=== PATIENT | female | born 1985 | race Two or more races ===

== ENCOUNTER 2020-05-17 17:35 | Emergency (ER) | payer MEDICARE, MEDICAID, SELFPAY ==
--- NOTE | 2020-05-17 18:22 | US_ITS ---
EXAMINATION: US OB LIMITED US OB TRANSVAGINAL CLINICAL INFORMATION: Vaginal bleeding, 5 weeks gestational age. Date of LMP 04/13/2020. COMPARISON: None TECHNIQUE: Real-time scanning of the pelvis is acquired via transabdominal and transvaginal approach. FINDINGS: The uterus is anteverted, measuring 10.3 x 4.2 x 6.0 cm in length (from fundus to external cervical os, AP and transverse dimensions, respectively). Endometrial stripe thickness is 0.9 cm. There is no evidence of intrauterine gestational sac. Cervix is closed. The right ovary measures 3.4 x 2.2 x 2.3 cm and contains a mildly complex avascular cyst with peripheral rim of vascularity measuring 2.0 x 1.4 x 1.8, consistent with a corpus luteal cyst. Left ovary measures 4.2 x 2.4 x 2.1 cm and contains a 2.1 x 1.4 x 1.9 cm simple cyst. No adnexal mass or free fluid. IMPRESSION: No evidence of intrauterine at this time. No sonographic evidence to suggest ectopic . Recommend clinical correlation and correlation with serial beta-hCG. Follow up ultrasound may be acquired, as clinically deemed necessary.
--- NOTE | 2020-05-17 18:25 | ED_ITS ---
HPI - General Chief complaint: Vaginal Bleeding Stated complaint: vaginal bleeding Time Seen by Provider: 05/17/20 18:22 Source: patient Mode of arrival: ambulatory Limitations: no limitations History of Present Illness HPI Narrative: Patient is currently a at 5 weeks of gestational age. Patient comes in complaining of vaginal bleeding/ mild spotting. Patient started it started 1 hour ago. Patient denies abdominal pain, no UTIs symptoms. Patient states she had 3 positive tests MD Complaint: vaginal bleeding Onset (ago): hour(s) Related Data Allergies Allergy/AdvReac Type Severity Reaction Status Date / Time bee pollen [BEE STINGS] Allergy Unknown SWELLING Unverified 04/16/20 17:33 THROAT blueberry [Blueberry] Allergy Unknown HIVES Unverified 04/16/20 17:33 turkey Allergy Unknown HIVES Unverified 04/16/20 17:33 Bee stings Allergy Unknown hives, Uncoded 10/14/19 00:00 swelling, fever Blueberries Allergy Unknown hives Uncoded 10/14/19 00:00 Review of Systems Review of Systems: Yes all other systems are reviewed and are negative Genitourinary: Comments: mild vaginal spotting PMFSH Social History Social History Advance Directives: No Advance Directives Information Provided: No Physical Exam Vital Signs: Vital Signs: Vital Signs Temp Pulse Resp BP Pulse Ox 05/17/20 20:00 98.2 F 71 16 103/62 98 Const: General: cooperative and healthy appearing Orientation/consciousness: oriented to person HENMT: Head: Yes normal to inspection Ears: hearing grossly normal bilaterally General nose exam: Normal external nose present Eyes: General: appearance normal, both eyes and all related structures Neck: Neck: Yes normal visual inspection Chest: Chest palpation & inspection: normal inspection of the chest Resp: Effort & Inspection: normal respiratory effort Cardio: Rate: regular rate Rhythm: regular rhythm GI: Inspection: Yes normal to inspection : General: Yes no CVA tenderness Back/Spine/Pelvis: Back: no CVA tenderness Skin: General skin exam: no rashes or lesions noted Neuro: General: oriented to person Extrem: General: Yes normal to inspection Psych: Appearance: grossly normal Course Course Course Narrative: I discussed the labs and imaging with the patient, patient's quantitative hCG is negative, and the ultrasound is negative as well. At this time, cervical exam will be deferred. MDM - OB/Uterine Contractions MDM Narrative Medical decision making narrative: test negative, hCG level less than , patient likely resuming normal menstrual period Lab Data Result diagrams: 05/17/20 19:26 05/17/20 19:26 Labs: Lab Results 05/17/20 05/17/20 05/17/20 Range/Units 19:26 19:26 19:26 WBC 9.6 (4.8-10.8) X10*3/uL RBC 4.24 (4.20-5.50) X10*6/uL Hgb 12.7 (12.0-16.0) g/dl Hct 38.4 (37-47) % MCV 90.6 (80-98) fL MCH 30.0 (27.0-33.0) pg MCHC 33.1 (31.0-35.0) g/dl RDW 12.2 (11.0-16.0) % Plt Count 258 (160-400) X10*3/uL MPV 9.9 (9.4-12.3) fL Immature Gran % (Auto) 0.3 (0.0-0.4) % Neut % (Auto) 54.9 (45-73) % Lymph % (Auto) 34.2 (20-40) % [place] % (Auto) 7.9 (2-11) % Eos % (Auto) 2.1 (0-4) % Baso % (Auto) 0.6 (0-2) % Lymph # (Auto) 3.3 (1.2-4.9) X10*3/uL [place] # (Auto) 0.8 (0.1-1.2) X10*3/uL Eos # (Auto) 0.2 (0.0-0.4) X10*3/uL Baso # (Auto) 0.1 (0.0-0.2) X10*3/uL Abs Immat Gran (auto) 0.03 (0.00-0.03) X10*3/uL Absolute Neuts (auto) 5.2 (2.0-8.3) X10*3/uL Absolute Nucleated RBC 0.000 (0.0-0.012) X10*3/uL Nucleated RBC % (auto) 0.0 (0.0-0.2) /100WBC Sodium 140 (135-145) mmol/L Potassium 4.4 (3.3-5.1) mmol/l Chloride 108 (96-108) mmol/L Carbon Dioxide 23 (22-29) mmol/L Anion Gap 13 (12-20) BUN 14 (9-16) mg/dL Creatinine 0.81 (0.5-1.4) mg/dL Estim Creat Clear Calc TNP Estimated GFR > 60 Random Glucose 90 (60-115) mg/dL Calcium 9.3 (8.4-10.2) mg/dL Total Bilirubin 0.2 (0.0-1.0) mg/dL Direct Bilirubin < 0.2 (0.0-0.5) mg/dL AST 20 (5-31) U/L ALT 41 H (0-31) U/L Alkaline Phosphatase 49 (39-117) U/L Total Protein 7.1 (6.5-8.0) g/dL Albumin 4.3 (3.5-5.0) g/dL Beta HCG, Quant 8 mIU/mL Urine Color Urine Appearance Urine pH (5.0-8.0) Ur Specific Badger (1.005-1.025) Urine Protein (NEG-TRACE) MG/DL Urine Glucose (UA) (NEG) MG/DL Urine Ketones (NEG) MG/DL Urine Blood (NEG) Urine Nitrite (NEG) Ur Leukocyte Esterase (NEG) Urine RBC (0) /HPF Urine WBC (0-4) /HPF Ur Squamous Epith Cells /LPF Urine Bacteria /LPF Blood Type O Positive 05/17/20 Range/Units 19:27 WBC (4.8-10.8) X10*3/uL RBC (4.20-5.50) X10*6/uL Hgb (12.0-16.0) g/dl Hct (37-47) % MCV (80-98) fL MCH (27.0-33.0) pg MCHC (31.0-35.0) g/dl RDW (11.0-16.0) % Plt Count (160-400) X10*3/uL MPV (9.4-12.3) fL Immature Gran % (Auto) (0.0-0.4) % Neut % (Auto) (45-73) % Lymph % (Auto) (20-40) % [place] % (Auto) (2-11) % Eos % (Auto) (0-4) % Baso % (Auto) (0-2) % Lymph # (Auto) (1.2-4.9) X10*3/uL [place] # (Auto) (0.1-1.2) X10*3/uL Eos # (Auto) (0.0-0.4) X10*3/uL Baso # (Auto) (0.0-0.2) X10*3/uL Abs Immat Gran (auto) (0.00-0.03) X10*3/uL Absolute Neuts (auto) (2.0-8.3) X10*3/uL Absolute Nucleated RBC (0.0-0.012) X10*3/uL Nucleated RBC % (auto) (0.0-0.2) /100WBC Sodium (135-145) mmol/L Potassium (3.3-5.1) mmol/l Chloride (96-108) mmol/L Carbon Dioxide (22-29) mmol/L Anion Gap (12-20) BUN (9-16) mg/dL Creatinine (0.5-1.4) mg/dL Estim Creat Clear Calc Estimated GFR Random Glucose (60-115) mg/dL Calcium (8.4-10.2) mg/dL Total Bilirubin (0.0-1.0) mg/dL Direct Bilirubin (0.0-0.5) mg/dL AST (5-31) U/L ALT (0-31) U/L Alkaline Phosphatase (39-117) U/L Total Protein (6.5-8.0) g/dL Albumin (3.5-5.0) g/dL Beta HCG, Quant mIU/mL Urine Color YELLOW Urine Appearance CLEAR Urine pH 5.5 (5.0-8.0) Ur Specific Badger <= 1.005 (1.005-1.025) Urine Protein NEG (NEG-TRACE) MG/DL Urine Glucose (UA) NEG (NEG) MG/DL Urine Ketones NEG (NEG) MG/DL Urine Blood 3+ H (NEG) Urine Nitrite NEG (NEG) Ur Leukocyte Esterase NEG (NEG) Urine RBC 0 (0) /HPF Urine WBC 0 (0-4) /HPF Ur Squamous Epith Cells TRACE /LPF Urine Bacteria TRACE /LPF Blood Type Discharge Plan Discharge Clinical Impression: Vaginal bleeding, Normal physical examination Patient Disposition: Home, Self-Care Instructions: Normal Exam (ED) Additional Instructions: your test was negative on your ultrasound was negative for as well. Please follow-up with your primary care physician
[2020-05-17 19:32] LABS: MANUAL DIFF FLAG NO
[2020-05-17 19:34] LABS: Basophils Absolute Auto 0.1 X10*3/uL (0.0-0.2); Basophils Percent Auto 0.6 % (0-2); Eosinophils Absolute Auto 0.2 X10*3/uL (0.0-0.4); Eosinophils Percent Auto 2.1 % (0-4); Hematocrit 38.4 % (37-47); Hemoglobin 12.7 g/dl (12.0-16.0); Imm Gran Abs Auto 0.03 X10*3/uL (0.00-0.03); Imm Gran Pct Auto 0.3 % (0.0-0.4); Lymphocytes Absolute Auto 3.3 X10*3/uL (1.2-4.9); Lymphocytes Percent Auto 34.2 % (20-40); Mean Corpuscular HGB Conc 33.1 g/dl (31.0-35.0); Mean Corpuscular Volume 90.6 fL (80-98); Mean Platelet Volume 9.9 fL (9.4-12.3); Monocytes Absolute Auto 0.8 X10*3/uL (0.1-1.2); Monocytes Percent Auto 7.9 % (2-11); Neutrophils Absolute Auto 5.2 X10*3/uL (2.0-8.3); Neutrophils Percent Auto 54.9 % (45-73); Platelet Count 258 X10*3/uL (160-400); Red Blood Count 4.24 X10*6/uL (4.20-5.50); Red Cell Distribution Width 12.2 % (11.0-16.0); White Blood Count 9.6 X10*3/uL (4.8-10.8)
[2020-05-17 19:35] LABS: Glucose Urine UA NEG (NEG); Leukocyte Esterase Urine NEG (NEG); Nitrite Urine NEG (NEG); PH 5.5 (5.0-8.0); Specific Gravity - Urine <= 1.005 (1.005-1.025); Urine Blood 3+ (NEG); Urine Ketones NEG (NEG); Urine Protein NEG (NEG-TRACE)
[2020-05-17 19:36] LABS: Appearance Urine CLEAR; Color Urine YELLOW
[2020-05-17 19:44] LABS: Bacteria Urine TRACE /LPF; RBC Urine 0 /HPF (0); Squamous Epithelial Cell Urine TRACE /LPF; WBC Urine 0 /HPF (0-4)
[2020-05-17 20:00] VITALS: BP 103/62; PULSE 71; RESP 16; TEMP 36.8; O2SAT 98
[2020-05-17 20:09] LABS: Alanine Aminotransferase 41 U/L (0-31); Albumin Level 4.3 g/dL (3.5-5.0); Alkaline Phosphatase 49 U/L (39-117); Anion Gap 13 (12-20); Aspartate Amino Transferase 20 U/L (5-31); Bilirubin Direct < 0.2 mg/dL (0.0-0.5); Bilirubin Total 0.2 mg/dL (0.0-1.0); Blood Urea Nitrogen 14 mg/dL (9-16); Calcium 9.3 mg/dL (8.4-10.2); Carbon Dioxide 23 mmol/L (22-29); Chloride 108 mmol/L (96-108); Estimated Glomerular Filt Rate > 60; Glucose Random 90 mg/dL (60-115); Potassium 4.4 mmol/l (3.3-5.1); Sodium 140 mmol/L (135-145); Total Protein 7.1 g/dL (6.5-8.0)
[2020-05-17 20:16] LABS: HCG Quantitative 8 mIU/mL
== END 2020-05-17 21:41 | disposition home or self-care (01) ==
PROVIDERS: Emergency Provider Emergency Medicine; PCP Internal Medicine
DX: N93.9 Abnormal uterine and vaginal bleeding, unspecified (principal)
CPT/HCPCS: 36415; 76815; 76817; 80048; 80076; 81001; 84702; 85025; 86900; 86901; 99283; 99284

== ENCOUNTER 2020-06-09 09:50 | Outpatient (REF) | payer OTHER, SELFPAY | END 2020-06-09 09:51 | disposition home or self-care (01) | LOC: HO.LAB 09:50 | PROVIDERS: Visit Provider Internal Medicine | DX: Z20.828 Contact with and (suspected) exposure to other viral communicable diseases (principal) | CPT/HCPCS: C9803; U0003 ==

== ENCOUNTER 2020-06-26 12:29 | Outpatient (REF) | payer OTHER, SELFPAY | END 2020-06-26 12:30 | disposition home or self-care (01) | LOC: HO.LAB 12:29 | PROVIDERS: Visit Provider Internal Medicine | DX: Z20.828 Contact with and (suspected) exposure to other viral communicable diseases (principal) | CPT/HCPCS: C9803; U0003 ==

== ENCOUNTER 2020-09-16 15:47 | Outpatient (REF) | payer OTHER, SELFPAY | END 2020-09-16 15:48 | disposition home or self-care (01) | LOC: HO.LAB 15:47 | PROVIDERS: Visit Provider Nurse Practitioner Family | DX: J01.90 Acute sinusitis, unspecified (principal); Z20.822 Contact with and (suspected) exposure to COVID-19 | CPT/HCPCS: 36415; U0003; U0005 ==

== ENCOUNTER 2021-08-03 09:25 | Emergency (ER) | payer OTHER, SELFPAY ==
--- NOTE | ~2021-08-03 | XR_ITS ---
EXAMINATION: XR CHEST CLINICAL INFORMATION: SOB and cough. COMPARISON: None TECHNIQUE: Frontal view of the chest was obtained. FINDINGS: No significant abnormality is noted involving the heart, lungs, mediastinum, bony thorax or soft tissues. XR/XR chest 1V IMPRESSION: Unremarkable chest examination.
[2021-08-03 09:38] VITALS: BP 116/68; BP 125/76; PULSE 74; PULSE 75; RESP 16; TEMP 36.8; O2SAT 99; BMI 29.5
--- NOTE | 2021-08-03 09:43 | ED_ITS ---
HPI - Weakness General Chief complaint: Weakness Stated complaint: GENERAL WEAKNESS,+HOME COVID TEST,+ VACCINES Time Seen by Provider: 08/03/21 09:37 Source: patient Mode of arrival: EMS Limitations: no limitations History of Present Illness HPI Narrative: This is a 36-year-old female who is brought in by ambulance past medical history significant for asthma and seasonal allergies presenting to the emergency department with weakness,productive cough, palpitations and with hope to get a covid test X1 day. Patient tells me that she has been palpitations however she does tell me she feels very anxious, she tells me this feels like her typical anxiety attack. She tells me with making her anxious is COVID-19, she is afraid that her 5 children at home will get this. She tells me that she was recently treated with Zyrtec for sinus congestion. She tells me it has slightly improved however she still feeling weak. Patient tells me that she wanted to get COVID testedbecause she had a positive COVID test on Monday at home, and yesterday she took another when she came back negative. She denies chest pain, shortness of breath, fevers, chills, nausea, vomiting, abdominal pain. MD Complaint: generalized weakness Onset (ago): day(s) (1) Duration: constant Location: generalized Migration: none Severity: moderate Relieving factors: none Exacerbating factors: none Associated symptoms: denies other symptoms Related Data Previous Rx's Medication Instructions Recorded albuterol sulfate 90 mcg/actuation 2 puff INHALATION Q4-6H PRN 30 07/27/21 aerosol inhaler (ProAir HFA) Days #8.5 g cetirizine 10 mg tablet 10 mg PO DAILY 90 Days #90 tab 07/27/21 Allergies Allergy/AdvReac Type Severity Reaction Status Date / Time bee pollen [BEE STINGS] Allergy Unknown SWELLING Verified 07/27/21 13:31 THROAT blueberry [Blueberry] Allergy Unknown HIVES Verified 07/27/21 13:31 turkey Allergy Unknown HIVES Unverified 07/27/21 13:31 Review of Systems Review of Systems: Constitutional : No Weight loss, No Fever, No Chills, + Fatigue, + Malaise ENT/Mouth : No sore throat, No Rhinorrhea Eyes: No Eye Pain, No Swelling, No Redness Cardiovascular : No Chest Pain, No SOB, No Dyspnea on Exertion, No Orthopnea, No Edema, No Palpitations Respiratory : + Cough, No Sputum, No Wheezing Gastrointestinal : No Nausea, No Vomiting, No Diarrhea, No Constipation, No abdominal Pain, No Hematochezia, No Melena Genitourinary : No Dysuria, No Urinary Frequency, No Hematuria, Musculoskeletal : No joint pain, + Myalgias, No Joint Swelling Skin : No Skin Lesions, No rash Neuro : No Weakness, No Numbness, No Dizziness, No Headache Psych : + Anxiety/Panic, No Depression All other systems reviewed and are negative Yes all other systems are reviewed and are negative [facility] Past Medical History Attestation statement: The following information was validated with the patient. Source: old records reviewed and nursing notes reviewed Surgical History (Updated 09/17/20 @ 14:54 by ANDRZEJ Marie, CHANDU) History of hernia repair Family History Family History (Updated 09/17/20 @ 15:03 by ANDRZEJ Marie, CHANDU) Father HTN (hypertension) Mother HTN (hypertension) Diabetes mellitus Maternal Grandmother Heart problem Lung cancer Stroke History of heart attack Maternal Grandfather Stroke Heart problem Paternal Grandmother Diabetes mellitus HTN (hypertension) Stroke History of heart attack Asthma Maternal Aunt Diabetes mellitus Maternal Uncle Stroke Brother No problems noted. Sister No problems noted. Son No problems noted. Son No problems noted. Daughter No problems noted. Daughter No problems noted. Social History Social History Advance Directives: No Patient : No Physical Exam Vital Signs: Vital Signs: Last Vital Signs Temp 98.2 F 08/03/21 09:38 Pulse 74 08/03/21 09:38 Resp 16 08/03/21 09:38 BP 116/68 08/03/21 09:38 Pulse Ox 99 08/03/21 09:38 BMI result Body Mass Index 29.5 VSS Appearance: Alert.? Oriented X3.? No acute distress.?+ patient anxious. Head: Normocephalic, atraumatic, no step-offs or deformities Eyes: Pupils equal, round and reactive to light.? ENT: Pharynx normal.? Neck: Normal inspection.? Neck supple.? CVS: Normal heart rate and rhythm.? Pulses normal.? Respiratory: No respiratory distress.? Breath sounds normal.? Abdomen: Soft and nontender.? Skin: Skin warm and dry.? Normal skin color.? Normal skin turgor.? Extremities: No lower extremity edema.? No calf ttp. 5/5 strength to bilateral upper and lower extremities Back: No midline tenderness, no C-spine tenderness, full range of motion, no CVA tenderness bilaterally Neuro: Oriented X 3.? No motor deficit.? No sensory deficit. Course Reevaluation(s) Reevaluation #1: CBC within normal limits. No acute electrolyte abnormalities, her transaminases are noted to be slightly elevated. Troponin is negative. EKG with no ischemia. Patient tells me that her palpitations and chest pain have resolved. Patient is COVID positive. Chest x-ray is unremarkable. Very low suspicion for ACS. No signs of pneumonia. Unlikely that this is a PE. Patient's symptoms likely secondary to COVID-19, and anxiety. At this time patient's vital signs are stable, she is saturating 99% even after ambulation. I feel comfortable with discharge home. I have educated her on COVID-19, proper quarantine and safety recommendations. I have also outlined strict return precautions for this patient and if put them in her discharge. Comfortable with discharge Time: 11:07 MDM - Weakness MDM Narrative Medical decision making narrative: 9[birth year] 36 yo F pmhx asthma, seasonal allergies presents to ED w/ generalized weakness, productive cough, palpitations and a COVID + at home test 5 days ago. Patient tells me she feels anxious. PE benign. Plan at this time is to obtain basic labs, COVID test, EKG, CXR, trop. Will rule out pna, ACS and COVID. Medical Records Attestation: I reviewed the patient's medical records. Lab Data Attestation: I reviewed the patient's lab results. Result diagrams: 08/03/21 10:10 08/03/21 10:10 Labs: Lab Results 08/03/21 08/03/21 08/03/21 Range/Units 09:43 10:10 10:10 WBC 5.9 (4.8-10.8) X10*3/uL RBC 4.29 (4.20-5.50) X10*6/uL Hgb 12.3 (12.0-16.0) g/dl Hct 37.6 (37.0-47.0) % MCV 87.6 (80.0-98.0) fL MCH 28.7 (27.0-33.0) pg MCHC 32.7 (31.0-35.0) g/dl RDW 12.8 (11.0-16.0) % Plt Count 258 (160-400) X10*3/uL MPV 9.8 (9.4-12.3) fL Immature Gran % (Auto) 0.2 (0.0-0.4) % Neut % (Auto) 49.5 (45-73) % Lymph % (Auto) 42.1 H (20-40) % [place] % (Auto) 6.4 (2-11) % Eos % (Auto) 1.5 (0-4) % Baso % (Auto) 0.3 (0-2) % Lymph # (Auto) 2.5 (1.2-4.9) X10*3/uL [place] # (Auto) 0.4 (0.1-1.2) X10*3/uL Eos # (Auto) 0.1 (0.0-0.4) X10*3/uL Baso # (Auto) 0.0 (0.0-0.2) X10*3/uL Abs Immat Gran (auto) 0.01 (0.00-0.03) X10*3/uL Absolute Neuts (auto) 2.9 (2.0-8.3) x10*3/uL Absolute Nucleated RBC 0.000 (0.0-0.012) X10*3/uL Nucleated RBC % (auto) 0.0 (0.0-0.2) /100WBC Sodium 142 (135-145) mmol/L Potassium 3.9 (3.3-5.1) mmol/L Chloride 112 H (96-108) mmol/L Carbon Dioxide 23 (22-29) mmol/L Anion Gap 11 L (12-20) BUN 8 L (9-16) mg/dL Creatinine 0.73 (0.5-1.4) mg/dL Estim Creat Clear Calc 117.9 Estimated GFR > 60 Random Glucose 92 (60-115) mg/dL Calcium 9.3 (8.4-10.2) mg/dL Total Bilirubin 0.2 (0.0-1.0) mg/dL AST 36 H D (5-31) U/L ALT 74 H (0-31) U/L Alkaline Phosphatase 59 D (39-117) U/L Troponin I High Sens (<3.5-17.0) ng/L Total Protein 7.0 (6.5-8.0) g/dL Albumin 4.0 (3.5-5.0) g/dL COVID-19 (CANDICE) Positive A (Negative) COVID-19 Clin Com See Note 08/03/21 Range/Units 10:10 WBC (4.8-10.8) X10*3/uL RBC (4.20-5.50) X10*6/uL Hgb (12.0-16.0) g/dl Hct (37.0-47.0) % MCV (80.0-98.0) fL MCH (27.0-33.0) pg MCHC (31.0-35.0) g/dl RDW (11.0-16.0) % Plt Count (160-400) X10*3/uL MPV (9.4-12.3) fL Immature Gran % (Auto) (0.0-0.4) % Neut % (Auto) (45-73) % Lymph % (Auto) (20-40) % [place] % (Auto) (2-11) % Eos % (Auto) (0-4) % Baso % (Auto) (0-2) % Lymph # (Auto) (1.2-4.9) X10*3/uL [place] # (Auto) (0.1-1.2) X10*3/uL Eos # (Auto) (0.0-0.4) X10*3/uL Baso # (Auto) (0.0-0.2) X10*3/uL Abs Immat Gran (auto) (0.00-0.03) X10*3/uL Absolute Neuts (auto) (2.0-8.3) x10*3/uL Absolute Nucleated RBC (0.0-0.012) X10*3/uL Nucleated RBC % (auto) (0.0-0.2) /100WBC Sodium (135-145) mmol/L Potassium (3.3-5.1) mmol/L Chloride (96-108) mmol/L Carbon Dioxide (22-29) mmol/L Anion Gap (12-20) BUN (9-16) mg/dL Creatinine (0.5-1.4) mg/dL Estim Creat Clear Calc Estimated GFR Random Glucose (60-115) mg/dL Calcium (8.4-10.2) mg/dL Total Bilirubin (0.0-1.0) mg/dL AST (5-31) U/L ALT (0-31) U/L Alkaline Phosphatase (39-117) U/L Troponin I High Sens < 3.5 (<3.5-17.0) ng/L Total Protein (6.5-8.0) g/dL Albumin (3.5-5.0) g/dL COVID-19 (CANDICE) (Negative) COVID-19 Clin Com Imaging Data Chest x-ray: Attestation: I personally reviewed and interpreted this imaging study as follows: Radiologist's impression: FINDINGS: No significant abnormality is noted involving the heart, lungs, mediastinum, bony thorax or soft tissues. XR/XR chest 1V IMPRESSION: Unremarkable chest examination. ECG Data Attestation: I personally reviewed and interpreted this ECG as follows: ECG interpretation date: 08/03/21 ECG interpretation time: 10:48 Prior ECG tracings: available for review Interpretation: ventricular rate 57, MT normal, QRS normal, QT / QTC normal. EKG shows sinus bradycardia. no ST elevations or inversions concerning for ischemia. No previous EKGs to compare with. Critical Care Time Critical Care Time Critical Care Time: No Discharge Plan Discharge Clinical Impression: COVID-19, Anxiety Patient Disposition: Home, Self-Care Instructions: Anxiety (ED), COVID-19 (Coronavirus Disease 2019) (ED) Additional Instructions: Take your medications as prescribed. If you were prescribed antibiotics today, it is important that you take your medication to their entirety, do not skip any doses, do not finish them early. Today you tested positive for COVID-19. Take Ibuprofen or Tylenol as needed for fevers or body aches. Quarantine for 7 days and ensure you wear a mask. After 7 days you should wear a mask for 3 days after that. Practice social distancing and good hand hygiene. Drink plenty of fluids. Follow-up with your primary care provider this week. Return to the emergency department with new or worsening symptoms. In case of emergency call 911 You can purchase a pulse oximeter from your local pharmacy or grocery store, and monitor your oxygen saturation if it goes below 94% you should return to the emergency department for further evaluation. If You Test Positive for COVID-19 (Isolate) Everyone, regardless of vaccination status. * Stay home for 5 days. * If you have no symptoms or your symptoms are resolving after 5 days, you can leave your house. * Continue to wear a mask around others for 5 additional days. If you have a fever, continue to stay home until your fever resolves. If You Were Exposed to Someone with COVID-19 (Quarantine) If you: Have been boosted OR Completed the primary series of Pfizer or Moderna vaccine within the last 6 months OR Completed the primary series of J&J vaccine within the last 2 months * Wear a mask around others for 10 days. * Test on day 5, if possible. If you develop symptoms get a test and stay home. If you: Completed the primary series of Pfizer or Moderna vaccine over 6?months ago and are not boosted OR Completed the primary series of J&J over 2 months ago and are not boosted OR Are unvaccinated * Stay home for 5 days. After that continue to wear a mask around others for 5 additional days. * If you can?t quarantine you must wear a mask for 10 days. * Test on day 5 if possible. If you develop symptoms get a test and stay home Prescriptions: No Action albuterol sulfate [ProAir HFA] 90 mcg/actuation HFA aerosol inhaler 2 puff inhalation Q4-6H PRN (Reason: shortness of breath or wheezing) 30 Days Qty: 8.5 RF: 6 cetirizine 10 mg tablet 10 mg PO DAILY 90 Days Qty: 90 RF: 1 Referrals: Leyla Carey [employer] [Primary Care Provider] - 2 days Stand Alone Forms: Work/School Release
--- NOTE | 2021-08-03 09:51 | ECG_ITS ---
Test Reason : weakness Blood Pressure : / mmHG Vent. Rate : 057 BPM Atrial Rate : 057 BPM P-R Int : 120 ms QRS Dur : 086 ms QT Int : 424 ms P-R-T Axes : 048 028 048 degrees QTc Int : 412 ms Sinus bradycardia Cannot rule out Anterior infarct , age undetermined Abnormal ECG When compared with ECG of 28-FEB-2019 01:31, No significant change was found Referred By: Christina Rogers Electronically Signed By:DENIA VEIIRA MD
[2021-08-03 10:04] LABS: COVID-19 Test Positive (Negative); IDNOW Serial# 9DD0AD1C
[2021-08-03 10:23] LABS: MANUAL DIFF FLAG NO
[2021-08-03 10:25] LABS: Basophils Percent Auto 0.3 % (0-2); Eosinophils Absolute Auto 0.1 X10*3/uL (0.0-0.4); Eosinophils Percent Auto 1.5 % (0-4); Hematocrit 37.6 % (37.0-47.0); Hemoglobin 12.3 g/dl (12.0-16.0); Imm Gran Abs Auto 0.01 X10*3/uL (0.00-0.03); Imm Gran Pct Auto 0.2 % (0.0-0.4); Lymphocytes Absolute Auto 2.5 X10*3/uL (1.2-4.9); Lymphocytes Percent Auto 42.1 % (20-40); Mean Corpuscular HGB Conc 32.7 g/dl (31.0-35.0); Mean Corpuscular Hemoglobin 28.7 pg (27.0-33.0); Mean Corpuscular Volume 87.6 fL (80.0-98.0); Mean Platelet Volume 9.8 fL (9.4-12.3); Monocytes Absolute Auto 0.4 X10*3/uL (0.1-1.2); Monocytes Percent Auto 6.4 % (2-11); Neutrophils Absolute Auto 2.9 x10*3/uL (2.0-8.3); Neutrophils Percent Auto 49.5 % (45-73); Platelet Count 258 X10*3/uL (160-400); Red Blood Count 4.29 X10*6/uL (4.20-5.50); Red Cell Distribution Width 12.8 % (11.0-16.0); White Blood Count 5.9 X10*3/uL (4.8-10.8)
[2021-08-03 10:45] LABS: Alanine Aminotransferase 74 U/L (0-31); Alkaline Phosphatase 59 U/L (39-117); Anion Gap 11 (12-20); Aspartate Amino Transferase 36 U/L (5-31); Bilirubin Total 0.2 mg/dL (0.0-1.0); Blood Urea Nitrogen 8 mg/dL (9-16); Calcium 9.3 mg/dL (8.4-10.2); Carbon Dioxide 23 mmol/L (22-29); Chloride 112 mmol/L (96-108); Creatinine Clr Calc Pharmacy 117.9; Estimated Glomerular Filt Rate > 60; Glucose Random 92 mg/dL (60-115); Potassium 3.9 mmol/L (3.3-5.1); Sodium 142 mmol/L (135-145); Troponin-I High Sensitivity < 3.5 ng/L (<3.5-17.0)
== END 2021-08-03 11:58 | disposition home or self-care (01) ==
PROVIDERS: Physician Assistant; Emergency Provider Emergency Medicine; PCP Hospitalist
DX: U07.1 COVID-19 (principal); F41.9 Anxiety disorder, unspecified; R53.1 Weakness
CPT/HCPCS: 36415; 71045; 80053; 84484; 85025; 87635; 93005; 99283

== ENCOUNTER → 2021-11-16 11:38 | Outpatient (BNVA) | payer OTHER, SELFPAY | PROVIDERS: Visit Provider Obstetrics & Gynecology | DX: Z30.09 Encounter for other general counseling and advice on contraception (principal) | CPT/HCPCS: Q3014 ==

== ENCOUNTER 2022-08-31 10:08 | Outpatient (REF) | payer OTHER, SELFPAY ==
[2022-08-31 11:05] LABS: Hematocrit 38.3 % (37.0-47.0); Hemoglobin 12.5 g/dl (12.0-16.0); Mean Corpuscular HGB Conc 32.6 g/dl (31.0-35.0); Mean Corpuscular Hemoglobin 29.3 pg (27.0-33.0); Mean Corpuscular Volume 89.9 fL (80.0-98.0); Mean Platelet Volume 10.1 fL (9.4-12.3); Platelet Count 302 X10*3/uL (160-400); Red Blood Count 4.26 X10*6/uL (4.20-5.50); Red Cell Distribution Width 12.7 % (11.0-16.0); White Blood Count 7.3 X10*3/uL (4.8-10.8)
[2022-08-31 11:36] LABS: Alanine Aminotransferase 59 U/L (0-31); Albumin Level 4.2 g/dL (3.5-5.0); Alkaline Phosphatase 53 U/L (39-117); Anion Gap 12 (12-20); Aspartate Amino Transferase 26 U/L (5-31); Bilirubin Total 0.7 mg/dL (0.0-1.0); Blood Urea Nitrogen 12 mg/dL (9-16); Calcium 9.5 mg/dL (8.4-10.2); Carbon Dioxide 23 mmol/L (22-29); Chloride 108 mmol/L (96-108); Cholesterol 211 mg/dL; Estimated Glomerular Filt Rate > 60; Glucose Fasting 82 mg/dL (60-99); HDL Cholesterol 33 mg/dL; LDL Cholesterol Calculated 150 mg/dl; Potassium 4.2 mmol/L (3.3-5.1); Sodium 139 mmol/L (135-145); Total Protein 7.2 g/dL (6.5-8.0); Triglycerides 140 mg/dL
[2022-08-31 11:55] LABS: TSH reflex Free T4 1.25 uIU/mL (0.32-4.0); Vitamin D 25-OH Total 13.7 ng/mL (>30)
== END 2022-08-31 10:09 | disposition home or self-care (01) ==
LOC: HO.WFDLDS 10:08
PROVIDERS: Visit Provider Nurse Practitioner Family
DX: Z00.00 Encounter for general adult medical examination without abnormal findings (principal)
CPT/HCPCS: 36415; 80053; 80061; 82306; 84443; 85027

== ENCOUNTER 2022-11-22 13:25 | Outpatient (REF) | payer OTHER, SELFPAY ==
--- NOTE | ~2022-11-22 | XR_ITS ---
EXAMINATION: XR ABDOMEN KUB CLINICAL INDICATION: Constipation COMPARISON: None available. TECHNIQUE: AP view of the abdomen. FINDINGS: There does not appear to be a large stool burden. There is some stool seen in the right colon. There are no dilated loops of bowel to suggest obstruction. No calcifications. Normal bony structures. XR/XR KUB IMPRESSION: No large stool burden. There is some stool seen in the right colon.
== END 2022-11-22 13:26 | disposition home or self-care (01) ==
LOC: HO.HMGCX 13:25
PROVIDERS: PCP Hospitalist; Visit Provider Hospitalist
DX: K59.09 Other constipation (principal)
CPT/HCPCS: 74018

== ENCOUNTER → 2022-12-14 09:00 | Outpatient (BNVA) | payer OTHER, SELFPAY | PROVIDERS: PCP Hospitalist; Visit Provider Dietitian, Registered | DX: E78.00 Pure hypercholesterolemia, unspecified (principal) | CPT/HCPCS: 97802 ==

== ENCOUNTER → 2023-01-11 08:24 | Outpatient (BNVA) | payer OTHER, SELFPAY | PROVIDERS: PCP Hospitalist; Visit Provider Physician Assistant ==

== ENCOUNTER 2023-01-16 19:30 | Emergency (ER) | payer OTHER, SELFPAY ==
[2023-01-16 19:40] VITALS: BP 113/76; PULSE 72; RESP 20; TEMP 36.7; O2SAT 96; BMI 35.5
--- NOTE | 2023-01-16 19:40 | ED.GENADULT ---
HPI - General Adult General Chief complaint: General Medical Stated complaint: throat pain / numbness on side Time Seen by Provider: 01/16/23 20:37 Source: patient, RN notes reviewed and old records reviewed Mode of arrival: ambulatory Limitations: no limitations History of Present Illness HPI narrative: 37-year-old female presents for evaluation of sore throat She reports that she was diagnosed with strep pharyngitis 3 weeks ago and was treated amoxicillin for 7 days Her symptoms have worsened over the last week and she continues to have pain and sore throat Reports subjective fevers yesterday Denies any difficulty breathing or swallowing Related Data Previous Rx's Medication Instructions Recorded clindamycin HCl 300 mg capsule 300 mg PO TID #30 caps 01/16/23 meloxicam 15 mg tablet 15 mg PO DAILY #14 tabs 01/16/23 Allergies Allergy/AdvReac Type Severity Reaction Status Date / Time bee pollen [BEE STINGS] Allergy Unknown SWELLING Verified 01/16/23 16:28 THROAT blueberry [Blueberry] Allergy Unknown HIVES Verified 01/16/23 16:28 turkey Allergy Unknown HIVES Verified 01/16/23 16:28 Review of Systems Constitutional: Constitutional: Reports as per HPI, Denies chills, Denies fatigue, Denies fever(s) and Denies headache(s) ENT: Denies headache(s), Reports neck pain, Reports sore throat and Denies throat swelling Cardiovascular: Cardiovascular: Denies chest pain and Denies dyspnea Respiratory: Respiratory: Denies cough and Denies dyspnea Gastrointestinal: Gastrointestinal: Denies abdominal pain, Denies constipation and Denies vomiting Genitourinary: Genitourinary: Denies dysuria Musculoskeletal: Musculoskeletal: Reports neck pain Neurologic: Denies headache(s) and Denies focal weakness Endocrine: Endocrine: Denies fatigue Allergic/Immunologic: Allergic/Immunologic: Denies throat swelling PMFSH Past Medical History Surgical History History of hernia repair Family History Family History Father HTN (hypertension) Mother HTN (hypertension) Diabetes mellitus Maternal Grandmother Heart problem Lung cancer Stroke History of heart attack Maternal Grandfather Stroke Heart problem Paternal Grandmother Diabetes mellitus HTN (hypertension) Stroke History of heart attack Asthma Maternal Aunt Diabetes mellitus Maternal Uncle Stroke Brother No problems noted. Sister No problems noted. Son No problems noted. Son No problems noted. Daughter No problems noted. Daughter No problems noted. Other Mental health disorder Substance use disorder Social History Social History Housing: Apartment Patient Tobacco Use Status: Never used Tobacco e-Cigarette/Vaping Use: Never Used Advance Directives: No Advance Directives Information Provided: Yes service: No Current occupational status: unemployed Current occupational exposures/hazards: No Cognitive needs: No Hearing needs: No Vision needs: No Physical Exam ED Vital Signs: Vital Signs - 24 hr 01/16/23 19:40 Temperature 98.0 F Pulse Rate 72 Respiratory Rate 20 Blood Pressure 113/76 Pulse Oximetry 96 Oxygen Delivery Method Room Air BMI result Body Mass Index 35.5 Const General: healthy appearing, comfortable, no acute distress, alert and awake Nutritional Appearance: well nourished Orientation/consciousness: patient oriented x3 HENMT Other: Mildly erythematous oropharynx/retropharynx. No significant tonsillar abscess. No obvious exudates. Eyes Eyelids: Yes eyelids normal Conjunctivae: conjunctivae normal Sclerae: sclerae normal Corneas: corneas normal Pupils: Equal, round and reactive pupils present EOM: EOMs intact bilaterally Neck Neck: Yes full ROM Skin General skin exam: no rashes or lesions noted and elasticity normal Neuro General: patient oriented x3 Cranial nerves: Yes Equal, round and reactive pupils present and Yes Bilaterally intact EOM present Cognition (Neuro): normal cognition Extrem Other: Moving all extremities well without any obvious deformities Course Course Course Narrative: 37 year old female presents for evaluation of a sore throat. Reports her symptoms started three weeks ago and she tested positive for strep and was treated. She reports that she finished the antibiotics, she states that she changed her toothbrush after being treated. Patient reports persistent sore throat. Plan for mono screen and repeat rapid strep test. Patient has retropharyngeal erythema on exam without obvious exudate Medical Decision Making Medical Decision Making MDM Narrative: Patient was tested for strep and mononucleosis. Her strep test was positive, she was treated previously with amoxicillin so we will switch to clindamycin. Differential Diagnosis Strep pharyngitis Viral syndrome Mononucleosis Exudative pharyngitis Lab Data 01/16/23 20:03 01/16/23 20:03 Labs: Lab Results 01/16/23 01/16/23 01/16/23 Range/Units 20:03 20:03 20:03 WBC 10.9 H (4.8-10.8) X10*3/uL RBC 4.30 (4.20-5.50) X10*6/uL Hgb 12.5 (12.0-16.0) g/dl Hct 37.9 (37.0-47.0) % MCV 88.1 (80.0-98.0) fL MCH 29.1 (27.0-33.0) pg MCHC 33.0 (31.0-35.0) g/dl RDW 12.8 (11.0-16.0) % Plt Count 307 (160-400) X10*3/uL MPV 9.4 (9.4-12.3) fL Immature Gran % (Auto) 0.5 H (0.0-0.4) % Neut % (Auto) 57.5 (45-73) % Lymph % (Auto) 32.2 (20-40) % [place] % (Auto) 7.7 (2-11) % Eos % (Auto) 1.6 (0-4) % Baso % (Auto) 0.5 (0-2) % Lymph # (Auto) 3.5 (1.2-4.9) X10*3/uL [place] # (Auto) 0.8 (0.1-1.2) X10*3/uL Eos # (Auto) 0.2 (0.0-0.4) X10*3/uL Baso # (Auto) 0.1 (0.0-0.2) X10*3/uL Abs Immat Gran (auto) 0.05 H (0.00-0.03) X10*3/uL Absolute Neuts (auto) 6.3 (2.0-8.3) x10*3/uL Absolute Nucleated RBC 0.000 (0.0-0.012) X10*3/uL Nucleated RBC % (auto) 0.0 (0.0-0.2) /100WBC Sodium 142 (135-145) mmol/L Potassium 3.7 (3.3-5.1) mmol/L Chloride 109 H (96-108) mmol/L Carbon Dioxide 25 (22-29) mmol/L Anion Gap 12 (12-20) BUN 9 (9-16) mg/dL Creatinine 0.89 (0.5-1.4) mg/dL Estim Creat Clear Calc 105.1 Estimated GFR > 60 Random Glucose 120 H (60-115) mg/dL Calcium 9.7 (8.4-10.2) mg/dL Monoscreen Negative (Negative) S. pyogenes GrpA LEONID (Negative) 01/16/23 Range/Units 20:04 WBC (4.8-10.8) X10*3/uL RBC (4.20-5.50) X10*6/uL Hgb (12.0-16.0) g/dl Hct (37.0-47.0) % MCV (80.0-98.0) fL MCH (27.0-33.0) pg MCHC (31.0-35.0) g/dl RDW (11.0-16.0) % Plt Count (160-400) X10*3/uL MPV (9.4-12.3) fL Immature Gran % (Auto) (0.0-0.4) % Neut % (Auto) (45-73) % Lymph % (Auto) (20-40) % [place] % (Auto) (2-11) % Eos % (Auto) (0-4) % Baso % (Auto) (0-2) % Lymph # (Auto) (1.2-4.9) X10*3/uL [place] # (Auto) (0.1-1.2) X10*3/uL Eos # (Auto) (0.0-0.4) X10*3/uL Baso # (Auto) (0.0-0.2) X10*3/uL Abs Immat Gran (auto) (0.00-0.03) X10*3/uL Absolute Neuts (auto) (2.0-8.3) x10*3/uL Absolute Nucleated RBC (0.0-0.012) X10*3/uL Nucleated RBC % (auto) (0.0-0.2) /100WBC Sodium (135-145) mmol/L Potassium (3.3-5.1) mmol/L Chloride (96-108) mmol/L Carbon Dioxide (22-29) mmol/L Anion Gap (12-20) BUN (9-16) mg/dL Creatinine (0.5-1.4) mg/dL Estim Creat Clear Calc Estimated GFR Random Glucose (60-115) mg/dL Calcium (8.4-10.2) mg/dL Monoscreen (Negative) S. pyogenes GrpA LEONID Positive A (Negative) Discharge Plan Discharge Clinical Impression: Acute streptococcal pharyngitis Patient Disposition: Home, Self-Care Instructions: Strep Throat (ED) Additional Instructions: Take clindamycin 3 times daily for 10 days Use ibuprofen, Tylenol for pain You may use salt water gargles or Chloraseptic spray You tested positive for strep throat again Change your toothbrush and wash her sheets after your last dose of antibiotic Prescriptions: New clindamycin HCl 300 mg capsule 300 mg PO TID Qty: 30 0RF No Action meloxicam 15 mg tablet 15 mg PO DAILY Qty: 14 0RF Stand Alone Forms: Work/School Release
[2023-01-16 20:10] LABS: MANUAL DIFF FLAG NO
[2023-01-16 20:14] LABS: Basophils Absolute Auto 0.1 X10*3/uL (0.0-0.2); Basophils Percent Auto 0.5 % (0-2); Eosinophils Absolute Auto 0.2 X10*3/uL (0.0-0.4); Eosinophils Percent Auto 1.6 % (0-4); Hematocrit 37.9 % (37.0-47.0); Hemoglobin 12.5 g/dl (12.0-16.0); Imm Gran Abs Auto 0.05 X10*3/uL (0.00-0.03); Imm Gran Pct Auto 0.5 % (0.0-0.4); Lymphocytes Absolute Auto 3.5 X10*3/uL (1.2-4.9); Lymphocytes Percent Auto 32.2 % (20-40); Mean Corpuscular Hemoglobin 29.1 pg (27.0-33.0); Mean Corpuscular Volume 88.1 fL (80.0-98.0); Mean Platelet Volume 9.4 fL (9.4-12.3); Monocytes Absolute Auto 0.8 X10*3/uL (0.1-1.2); Monocytes Percent Auto 7.7 % (2-11); Neutrophils Absolute Auto 6.3 x10*3/uL (2.0-8.3); Neutrophils Percent Auto 57.5 % (45-73); Platelet Count 307 X10*3/uL (160-400); Red Cell Distribution Width 12.8 % (11.0-16.0); White Blood Count 10.9 X10*3/uL (4.8-10.8)
[2023-01-16 20:15] LABS: IDNOW Serial# 08D9AD1C; Strep A Nucleic Acid Positive (Negative)
[2023-01-16 20:28] LABS: Anion Gap 12 (12-20); Blood Urea Nitrogen 9 mg/dL (9-16); Calcium 9.7 mg/dL (8.4-10.2); Carbon Dioxide 25 mmol/L (22-29); Chloride 109 mmol/L (96-108); Creatinine Clr Calc Pharmacy 105.1; Estimated Glomerular Filt Rate > 60; Glucose Random 120 mg/dL (60-115); Monotest Negative (Negative); Potassium 3.7 mmol/L (3.3-5.1); Sodium 142 mmol/L (135-145)
--- NOTE | 2023-01-16 20:47 | PC.NURSE ---
Reviewed discharge instructions with pt. pt verbalized understanding.
== END 2023-01-16 20:48 | disposition home or self-care (01) ==
PROVIDERS: Physician Assistant; Emergency Provider Emergency Medicine; PCP Internal Medicine Rheumatology
DX: J02.0 Streptococcal pharyngitis (principal); R07.0 Pain in throat; Z20.822 Contact with and (suspected) exposure to COVID-19; Z20.828 Contact with and (suspected) exposure to other viral communicable diseases; Z79.899 Other long term (current) drug therapy
CPT/HCPCS: 36415; 80048; 85025; 86308; 87651; 99282; 99283

== ENCOUNTER 2023-02-24 18:56 | Emergency (ER) | payer OTHER, SELFPAY ==
--- NOTE | ~2023-02-24 | US_ITS ---
EXAMINATION: US ABDOMEN LIMITED CLINICAL INFORMATION: Right upper quadrant pain. COMPARISON: None available. TECHNIQUE: Real-time imaging of the right upper quadrant abdominal viscera. FINDINGS: PANCREAS: The visualized portion of the pancreas head and body are normal, portion of the pancreatic body and tail, not visualized are obscured by bowel gas. LIVER: Normal. The liver is normal in size. The liver contour is normal. Parenchymal echogenicity is normal. No focal hepatic lesion. There is no intrahepatic biliary duct dilatation seen. GALLBLADDER: There are multiple gallstones. The gallbladder is physiologically distended without evidence of sludge, polyps, wall thickening or pericholecystic fluid. COMMON BILE DUCT: Normal in caliber measuring 0.4 cm in diameter. RIGHT KIDNEY: Normal. No hydronephrosis. No renal calculi or focal parenchymal lesions. The kidney measures 11.9 cm in maximum dimension. FREE FLUID: None. US/US abdomen limited IMPRESSION: Cholelithiasis without ultrasound evidence of acute cholecystitis.
[2023-02-24 19:11] VITALS: BP 126/73; PULSE 68; RESP 18; TEMP 36.6; O2SAT 98; BMI 32.1
--- NOTE | 2023-02-24 19:12 | ED_ITS ---
HPI - General Adult General Chief complaint: Abdominal Pain Stated complaint: Sharp pain Upper r side of ribs, nausea Time Seen by Provider: 02/24/23 21:47 Related Data Previous Rx's Medication Instructions Recorded clindamycin HCl 300 mg capsule 300 mg PO TID #30 caps 01/16/23 meloxicam 15 mg tablet 15 mg PO DAILY #14 tabs 01/16/23 Allergies Allergy/AdvReac Type Severity Reaction Status Date / Time bee pollen [BEE STINGS] Allergy Unknown SWELLING Verified 02/24/23 19:14 THROAT blueberry [Blueberry] Allergy Unknown HIVES Verified 02/24/23 19:14 turkey Allergy Unknown HIVES Verified 02/24/23 19:14 [facility] Past Medical History Surgical History History of hernia repair Family History Family History Father HTN (hypertension) Mother HTN (hypertension) Diabetes mellitus Maternal Grandmother Heart problem Lung cancer Stroke History of heart attack Maternal Grandfather Stroke Heart problem Paternal Grandmother Diabetes mellitus HTN (hypertension) Stroke History of heart attack Asthma Maternal Aunt Diabetes mellitus Maternal Uncle Stroke Brother No problems noted. Sister No problems noted. Son No problems noted. Son No problems noted. Daughter No problems noted. Daughter No problems noted. Other Mental health disorder Substance use disorder Social History Social History Housing: Apartment Patient Tobacco Use Status: Never used Tobacco e-Cigarette/Vaping Use: Never Used Advance Directives: No Advance Directives Information Provided: Yes service: No Current occupational status: unemployed Current occupational exposures/hazards: No Cognitive needs: No Hearing needs: No Vision needs: No Physical Exam ED Vital Signs: Vital Signs - 24 hr 02/24/23 19:11 Temperature 97.9 F Pulse Rate 68 Respiratory Rate 18 Blood Pressure 126/73 Pulse Oximetry 98 BMI result Body Mass Index 32.1 Course Course Course Narrative: This is a rapid medical exam: Additional HPI, ROS, PE not included below will be deferred to primary provider. Patient is a 37-year-old female presenting to the ED with RUQ abdominal pain since 1 am, nausea and vomiting. Denies diarrhea or constipation. Denies fevers. Plan: labs, UA, RUQ U/S Medical Decision Making Lab Data 02/24/23 19:32 02/24/23 19:32 Labs: Lab Results 02/24/23 02/24/23 02/24/23 Range/Units 19:32 19:32 19:32 WBC 8.3 (4.8-10.8) X10*3/uL RBC 4.47 (4.20-5.50) X10*6/uL Hgb 13.0 (12.0-16.0) g/dl Hct 39.3 (37.0-47.0) % MCV 87.9 (80.0-98.0) fL MCH 29.1 (27.0-33.0) pg MCHC 33.1 (31.0-35.0) g/dl RDW 12.3 (11.0-16.0) % Plt Count 261 (160-400) X10*3/uL MPV 9.9 (9.4-12.3) fL Immature Gran % (Auto) 0.4 (0.0-0.4) % Neut % (Auto) 43.9 L (45-73) % Lymph % (Auto) 45.1 H (20-40) % [place] % (Auto) 8.0 (2-11) % Eos % (Auto) 2.1 (0-4) % Baso % (Auto) 0.5 (0-2) % Lymph # (Auto) 3.7 (1.2-4.9) X10*3/uL [place] # (Auto) 0.7 (0.1-1.2) X10*3/uL Eos # (Auto) 0.2 (0.0-0.4) X10*3/uL Baso # (Auto) 0.0 (0.0-0.2) X10*3/uL Abs Immat Gran (auto) 0.03 (0.00-0.03) X10*3/uL Absolute Neuts (auto) 3.6 (2.0-8.3) x10*3/uL Absolute Nucleated RBC 0.000 (0.0-0.012) X10*3/uL Nucleated RBC % (auto) 0.0 (0.0-0.2) /100WBC Sodium 138 (135-145) mmol/L Potassium 4.1 (3.3-5.1) mmol/L Chloride 107 (96-108) mmol/L Carbon Dioxide 18 L (22-29) mmol/L Anion Gap 17 (12-20) BUN 13 (9-16) mg/dL Creatinine 0.85 (0.5-1.4) mg/dL Estim Creat Clear Calc 104.6 Estimated GFR > 60 Random Glucose 94 (60-115) mg/dL Calcium 9.8 (8.4-10.2) mg/dL Total Bilirubin 0.2 (0.0-1.0) mg/dL AST 23 (5-31) U/L ALT 37 H (0-31) U/L Alkaline Phosphatase 57 (39-117) U/L Total Protein 8.0 (6.5-8.0) g/dL Albumin 4.4 (3.5-5.0) g/dL Lipase 49 (8-78) U/L Beta HCG, Quant < 2 mIU/mL Discharge Plan Discharge Clinical Impression: Abdominal pain Patient Disposition: Elopement Prescriptions: No Action clindamycin HCl 300 mg capsule 300 mg PO TID Qty: 30 0RF meloxicam 15 mg tablet 15 mg PO DAILY Qty: 14 0RF Interventions: ED Discharge Assessment Last Done: 02/24/23 22:07 Discharge Date/Time: 02/24/23 22:07
[2023-02-24 19:37] LABS: MANUAL DIFF FLAG NO
[2023-02-24 19:39] LABS: Basophils Percent Auto 0.5 % (0-2); Eosinophils Absolute Auto 0.2 X10*3/uL (0.0-0.4); Eosinophils Percent Auto 2.1 % (0-4); Hematocrit 39.3 % (37.0-47.0); Imm Gran Abs Auto 0.03 X10*3/uL (0.00-0.03); Imm Gran Pct Auto 0.4 % (0.0-0.4); Lymphocytes Absolute Auto 3.7 X10*3/uL (1.2-4.9); Lymphocytes Percent Auto 45.1 % (20-40); Mean Corpuscular HGB Conc 33.1 g/dl (31.0-35.0); Mean Corpuscular Hemoglobin 29.1 pg (27.0-33.0); Mean Corpuscular Volume 87.9 fL (80.0-98.0); Mean Platelet Volume 9.9 fL (9.4-12.3); Monocytes Absolute Auto 0.7 X10*3/uL (0.1-1.2); Neutrophils Absolute Auto 3.6 x10*3/uL (2.0-8.3); Neutrophils Percent Auto 43.9 % (45-73); Platelet Count 261 X10*3/uL (160-400); Red Blood Count 4.47 X10*6/uL (4.20-5.50); Red Cell Distribution Width 12.3 % (11.0-16.0); White Blood Count 8.3 X10*3/uL (4.8-10.8)
[2023-02-24 20:03] LABS: Alanine Aminotransferase 37 U/L (0-31); Albumin Level 4.4 g/dL (3.5-5.0); Alkaline Phosphatase 57 U/L (39-117); Anion Gap 17 (12-20); Aspartate Amino Transferase 23 U/L (5-31); Bilirubin Total 0.2 mg/dL (0.0-1.0); Blood Urea Nitrogen 13 mg/dL (9-16); Calcium 9.8 mg/dL (8.4-10.2); Carbon Dioxide 18 mmol/L (22-29); Chloride 107 mmol/L (96-108); Creatinine Clr Calc Pharmacy 104.6; Estimated Glomerular Filt Rate > 60; Glucose Random 94 mg/dL (60-115); Lipase 49 U/L (8-78); Potassium 4.1 mmol/L (3.3-5.1); Sodium 138 mmol/L (135-145)
[2023-02-24 20:39] LABS: HCG Quantitative < 2 mIU/mL
== END 2023-02-24 22:07 | disposition left against medical advice (07) ==
PROVIDERS: Registered Nurse Emergency; Emergency Provider Emergency Medicine; PCP Hospitalist
DX: R10.30 Lower abdominal pain, unspecified (principal); R07.81 Pleurodynia; R11.2 Nausea with vomiting, unspecified; R10.11 Right upper quadrant pain; Z79.899 Other long term (current) drug therapy
CPT/HCPCS: 36415; 76705; 80053; 83690; 84702; 85025; 99282; 99284

== ENCOUNTER 2024-08-28 10:14 | Outpatient (AMB) | payer OTHER, SELFPAY ==
[2024-08-28 11:07] VITALS: BP 92/62; PULSE 84; RESP 14; TEMP 36.7; O2SAT 99; BMI 24.7
--- NOTE | 2024-08-28 11:07 | MHC.PC.OV ---
Vital Signs 08/28/24 11:07 Height 5 ft 6 in Weight 153 lb BMI 24.7 BP 92/62 Blood Pressure Location Lt brachial Position Sitting Respiration 14 Pulse 84 Pulse Source Pulse Oximeter Temp 98.1 F Temp Source Oral Pulse Oximetry (%) 99 Oxygen Delivery Method Room Air Intake Visit Reasons: Transfer of Care from [facility] Intake Note: Pt is here today as a transfer from [facility] and is requesting referral for neurology for frequent h/a Allergies bee pollen [BEE STINGS] Allergy (Unknown, Verified 08/28/24 11:15) SWELLING THROAT blueberry [Blueberry] Allergy (Unknown, Verified 08/28/24 11:15) HIVES turkey Allergy (Unknown, Verified 08/28/24 11:15) HIVES Medication List - Last Reconciled 08/28/24 by Gisselle Chapman MD amoxicillin-pot clavulanate 875-125 mg 1 tab PO Q12H fexofenadine-pseudoephedrine 60-120 mg ER 1 tab PO QAM PRN fluticasone propionate 50 mcg/actuation 1 spray intranasal DAILY multivitamin 1 tab PO DAILY semaglutide (weight loss) (Wegovy) mg subcut Tobacco use date assessed: 08/28/24 Dental Screening Dental Screen Date: 08/28/24 Did you have a dental visit in the last 12 months?: Yes Did you have a dental problem in the last 6 months where you did not have access to dental care?: No Was dental information given to patient?: Patient has dentist HPI Transfer of Care from [facility] HPI Details 39-year-old lady here today complaining of frontal headaches mainly on her left cheek, accompanied by nasal congestion postnasal drainage, which has been present now for the last several days. He has been taking [id number] cough and cold medications which has not afforded much improvement in her symptoms. Denies any accompanying fever, no cough, no shortness of breath or wheezing reported. [facility] Medical History History of COVID-19 Dyslipidemia History of being obese Surgical History History of hernia repair Family History Father HTN (hypertension) Mother HTN (hypertension) Diabetes mellitus Maternal Grandmother Heart problem Lung cancer Stroke History of heart attack Maternal Grandfather Stroke Heart problem Paternal Grandmother Diabetes mellitus HTN (hypertension) Stroke History of heart attack Asthma Maternal Aunt Diabetes mellitus Maternal Uncle Stroke Brother No problems noted. Sister No problems noted. Son No problems noted. Son No problems noted. Daughter No problems noted. Daughter No problems noted. Other Mental health disorder Substance use disorder Social History Housing: Apartment Patient Tobacco Use Status: Never used Tobacco e-Cigarette/Vaping Use: Never Used service: No Current occupational status: unemployed Current occupational exposures/hazards: No Cognitive needs: No Hearing needs: No Vision needs: Yes Female Reproductive History Menstrual Age of Menarche: 17 Questionnaire PHQ-9 Over the last 2 weeks, how often have you been bothered by any of the following problems? 1. Little interest or pleasure in doing things: several days 2. Feeling down, depressed, or hopeless: not at all 3. Trouble falling or staying asleep, or sleeping too much: several days 4. Feeling tired or having little energy: several days 5. Poor appetite or overeating: not at all 6. Feeling bad about yourself - or that you are a failure or have let yourself or your family down: not at all 7. Trouble concentrating on things, such as reading the newspaper or watching television: several days 8. Moving or speaking so slowly that other people could have noticed. Or the opposite - being so fidgety or restless that you have been moving around a lot more than usual: not at all 9. Thoughts that you would be better off or of hurting yourself in some way: not at all Total score: 4 Depression Screening Interpretation: Negative Depression Screening Done: Yes 26910 - PHQ-9 Billing: Yes Source: Developed by Drs. Isac Marx, Rizwana Schulte, Jony Paul and colleagues, with an educational yves from [employer]. Thrive Questionnaire Date Thrive assessed: 08/28/24 I am a: Patient What is your living situation today?: I have a steady place to live Within the past 12 months, did the food you bought not last and you didn't have the money to get more?: Never true Within the past 12 months, did you worry whether your food would run out before you got money to buy more?: Never true Do you have trouble paying for medicines?: No Do you have trouble getting transportation to medical appointments?: No Do you have trouble paying your heating and electricity bill?: No Do you have trouble taking care of your child, family member or friend?: No Do you have trouble with day-to-day activities such as bathing, preparing meals, shopping, managing finances, etc.?: I choose not to answer this question Are you currently unemployed and looking for a job?: No Are you interested in more education?: No Please select the resources that you would like help with: None Currently or been in a relationship where the following occur: No concerns reported THRIVE Score: 0 AUDIT C Alcohol Use Questionnaire (AUDIT-C) 1. How often do you have a drink containing alcohol?: Never Total Score: 0 MAURO-7 AMB Questionnaire MAURO-7 Date MAURO - 7 assessed: 08/28/24 Feeling nervous, anxious, or on edge: 0 = Not at all Not being able to stop or control worryin = Not at all Worrying too much about different things: 0 = Not at all Trouble relaxin = Not at all Being so restless that it is hard to sit still: 0 = Not at all Becoming easily annoyed or irritable: 1 = Several days Feeling afraid as if something awful might happen: 0 = Not at all Total MAURO-7 score (0-4 normal; 5-9 mild; 10-14 moderate; 15-21 severe): 1 Source: Developed by Drs. Isac Marx, Rizwana Schulte, Jony Paul and colleagues, with an educational yves from [employer]. MAURO-7 Assessment Billing MAURO-7 Assessment Tool: MAURO-7 Assessment 29763 Review of Systems Const All systems reviewed & are unremarkable except as noted in HPI and below Physical exam (Primary Care) Vital Signs: Last Vital Signs Temp 98.1 F 08/28/24 11:07 Pulse 84 08/28/24 11:07 Resp 14 08/28/24 11:07 BP 92/62 08/28/24 11:07 Pulse Ox 99 08/28/24 11:07 Oxygen Delivery Method Room Air 08/28/24 11:07 BMI result Body Mass Index 24.7 Tobacco/Smoking Status: Tobacco use Status Tobacco use date assessed 08/28/24 08/28/24 11:11 Patient Tobacco Use Status Never used Tobacco 08/28/24 11:11 e-Cigarette/Vaping Use Never Used 08/28/24 11:11 PHQ-9: PHQ-9 Score PHQ-9: Total score 4 08/28/24 11:37 Depression Screening Interpretation: Negative Thrive Assessment: Date of Thrive Assessment Date Thrive assessed 08/28/24 08/28/24 11:11 Currently or been in a relationship where the following occur: No concerns reported Const Other: Alert oriented x3 , no acute distress noted Orientation/consciousness: patient oriented x3 HENMT Other: Tenderness on palpation over left maxillary sinus area, with swollen left inferior nasal turbinate Ears: external ears normal, TM's normal bilaterally and EAC's normal Eyes General: appearance normal, both eyes and all related structures Neck Neck: Yes full ROM, Yes no lymphadenopathy and Yes supple Resp Auscultation: clear to auscultation bilaterally Cardio Other: S1-S2 present regular rate and rhythm GI Palpation (GI): Soft to palpation, nontender and no guarding Neuro General: patient oriented x3, gait normal, moves all extremities and no focal motor deficits Coding Level of Care Code New Pt Level 3 (54465) Diagnoses Acute non-recurrent maxillary sinusitis J01.00 Recurrence: non-recurrent Additional Codes MAURO-7 Assessment Billing - MAURO-7 Assessment Tool: MAURO-7 Assessment 53463 ([id number]) PHQ-9 - 55856 - PHQ-9 Billing: Yes ([id number]) Assessment & Plan Assessment & Plan (1) Acute maxillary sinusitis: Code(s): J01.00 - Acute maxillary sinusitis, unspecified Category: Medical Qualifiers: Recurrence: non-recurrent Qualified Code(s): J01.00 - Acute maxillary sinusitis, unspecified Plan: Prescription sent for amoxicillin-clavulanic acid 875-125 mg tablet to take 1 every 12 hours for 10 days. Advised to take it with food at all times, may cause some nausea and alteration in bowel habits. Prescription also sent for fexofenadine-pseudoephedrine 60-120 mg per tablet to take 1 tablet once a day as needed for sinus congestion , take it only as needed. And prescription also sent for fluticasone propionate 50 mcg per inhalation 2 instill 1 spray per nostril once or twice a day as needed for nasal congestion. Medications: New fexofenadine-pseudoephedrine 60-120 mg ER 1 tab PO QAM PRN 10 tabs 0RF allergy symptoms, nasal congestion amoxicillin-pot clavulanate 875-125 mg Take it with meals 1 tab PO Q12H 20 tabs 0RF fluticasone propionate 50 mcg/actuation administer into each nostril 1 spray intranasal DAILY 16 grams 0RF
--- OUTSIDE RECORDS SUMMARY | 2024-08-28 12:12 | XMS_ITS | Clinical Summary ---
Author Organization [address] [place] [address] [place] [phone] Phone Care Team Providers Care Hazardous Waste Technician Name Role Phone Christopher Sanchez MD Primary Care Provider [phone] Allergies Active Allergy Reactions Criticality Noted Date Comments Blueberry Flavor Medium 05/29/2007 Other Reaction(s): Hives/Urticaria Medications Medication Sig Dispensed Refills Start Date End Date Status cyanocobalamin, vitamin B-12, 1,000 mcg tablet, sublingual Place 1 Tablet under the tongue daily. 04/22/2024 Active zinc glycinate 30 mg capsule Take 1 Capsule by mouth daily. 04/22/2024 Active nystatin (MYCOSTATIN) 100,000 unit/gram powder Apply topically if needed for rash (rash). 15 g 2024 2025 Active semaglutide (Wegovy) 2.4 mg/0.75 mL injection pen Inject 2.4 mg under the skin every 7 (seven) days. 3 mL 08/15/2024 Active semaglutide (Wegovy) 2.4 mg/0.75 mL injection pen Inject 2.4 mg under the skin every 7 (seven) days. 3 mL 2024 08/14/2024 Discontinued (Reorder) Active Problems Problem Noted Date Diagnosed Date Rectal bleeding 08/27/2010 Anemia 03/11/2008 Joint pain 03/11/2008 Overview (05/08/2024): Wrist pain and knee pain and ankle pain Vertigo 03/11/2008 Encounters Date Type Department Care Team Description 08/28/2024 Telephone Bariatric Surgery [facility] [address] [facility] [address] [place] [address] Anais Gaviria PA Med Refill 2024 10:15 AM EST Office Visit Bariatric Surgery - [address] [place] [address] Anais Gaviria PA Hx of obesity (Primary Dx); Symptomatic abdominal panniculus from Last 3 Months Immunizations Name Administration Dates Next Due DTP 04/22/1993,199 0,10/06/1988,1987,1987 [id number] (Pentacel) 2mo to less than 5yo 01/12/1989 Hepatitis B Pediatric (Enger ix B; Recombivax HB) to less than 20 yo 07/26/1996,03/13/1996,12/29/1995 Influenza trivalent, with preservative (Fluzone; Afluria) 6mo and older 07/27/2007 MMR, measles mumps and rubel la Live (Priorix; M-M-R II) 12mo and older 06/28/1995,09/15/1988 OPV 04/22/1993, 9,06/28/1988,1987 Td Tetanus diptheria (Tdvax) 7yo and older 09/13/2000 Family History Medical History Relation Name Comments Diabetes Aunt 1 Hypertension Aunt 2 Lung cancer Maternal Grandmother Diabetes Paternal Grandmother Relation Name Status Comments Aunt 1 Aunt 2 Aunt 3 Maternal Grandmother Paternal Grandmother Social History Tobacco Use Types Packs/Day Years Used Date Smoking Tobacco: Never Alcohol Use Standard Drinks/Week Comments No 0 (1 standard drink = 0.6 oz pur e alcohol) Sex and Gender Information Value Date Recorded Sex Assigned at Not on file Gender Identity Not on file Sexual Orientation Not on file Job Start Date Occupation Industry Not on file Not on file Not on file Obstetrics History Last Filed Vital Signs Vital Sign Reading Time Taken Comments Blood Pressure 95/62 2024 10:19 AM EST Pulse 82 2024 10:19 AM EST Temperature 36.3 ??C (97.4 ??F) 2024 10:[address] Respiratory Rate - - Oxygen Saturation - - Inhaled Oxygen Concentration - - Weight 72.1 kg (159 lb) 2024 10:19 AM EST Height 167.6 cm (5' 6 ) 2024 10:19 AM EST Body Mass Index 25.66 2024 10:19 AM EST Plan of Treatment Upcoming Encounters Date Type Department Care Team (Late st Contact Info) Description 09/26/2024 9:15 AM EST Office Visit Bariatric Surgery - [place] [address] [facility] [address] [place] [phone] Anais Gaviria PA [address] [facility] [address] [place] [address] Health Maintenance Due Date Last Done Comments Cervical Cancer Screening: Pap Smear 08/27/2013 08/27/2010 Cholesterol Screening (Lipid Panel) 07/03/2022 09/08/2008 Depression Screening 07/03/2022 Hepatitis C Screening 07/03/2022 Medicare Annual Wellness Visit 07/03/2022 Social Influencers of Health Screening 07/03/2022 COVID-19 Vaccine ( season) 2024 07/27/2022, 02/22/2022, 12/31/2020, Additional history exists Influenza Vaccine (#1) 2024 , 05/31/2021, 04/26/2018, Additional history exists DTaP,Tdap,and Td Vaccines (10 - Td or Tdap) 04/02/2031 04/02/2021, 02/04/2015, 07/31/2013, Additional history exists HIB Vaccines Completed 01/12/1989, 01/12/1989 IPV Vaccines Completed 04/22/1993, 12/29, 01/12/1989, Additional history exists MMR Vaccines Completed 06/28/1995, 09/15/1988 Hepatitis B Vaccines Completed 07/26/1996, 03/13/1996, 12/29/1995 HIV Screening Completed 03/10/2009 HPV Vaccines Aged Out No longer eligi ble based on patient's age to complete this topic Hepatitis A Vaccines Aged Out No long er eligible based on patient's age to complete this topic Meningococcal ACWY Vaccine Aged Out N o longer eligible based on patient's age to complete this topic Pneumococcal Vaccine: Pediatrics (0 to 5 Years) and At-Risk Patients (6 to 64 Years) Aged Out No longer eligible based on patient's age to complete this topic RSV Immunization Patients Under 20 months Aged Out No longer eligible based on patient's age to complete this topic Varicella Vaccines Aged Out No longer eligible based on patient's age to complete this topic Procedures Procedure Name Priority Date/Time Associated Diagnosis Comments PAP SMEAR Routine 08/27/2010 HIV SCREENING Routine 03/10/2009 LIPID PANEL Routine 09/08/2008 from Last 3 Months or Most Recently Relevant to Health Maintenance Results * Pap Smear (08/27/2010) Pap smear Negative, Abstracted Historical Provider MD C[facility]AND CAMPOS E * HIV Screening (03/10/2009) Pathologist [facility] HIV Screening Abstracted Historical Provider MD C[facility]AND CAMPOS E * (ABNORMAL) Lipid panel (09/08/2008) LDL/HDL Ratio 5(A) 0 - 4 Triglycerides 222(A) 0 - 150 mg/dL Cholesterol 159 0 - 200 mg/dL HDL 29(A) 40 mg/dL LDL Cholesterol 86 0 - 100 mg/dL Blood Venous blood specimen / Unknown Historical Provider LAB BLOOD ORDERAB LES from Last 3 Months or Most Recently Relevant to Health Maintenance Care Teams Hazardous Waste Technician Relationship Specialty Start Date End Date Christopher Sanchez MD [address] [place] [address] Dr [address] JAKI Pitt PCP - General Internal Medicine 05/08/24
== END 2024-08-28 11:35 | disposition home or self-care (01) ==
PROVIDERS: PCP Hospitalist; Visit Provider Internal Medicine
DX: J01.00 Acute maxillary sinusitis, unspecified (principal)

== ENCOUNTER → 2024-08-28 10:14 | Outpatient (BNVA) | payer OTHER, SELFPAY | PROVIDERS: PCP Hospitalist; Visit Provider Internal Medicine | DX: R51.9 Headache, unspecified (principal); J01.00 Acute maxillary sinusitis, unspecified | CPT/HCPCS: 96127; 99202 ==

== ENCOUNTER 2025-02-27 08:49 | Outpatient (AMB) | payer OTHER, SELFPAY ==
--- NOTE | 2025-02-27 08:53 | A.OFFPC_ITS ---
Vital Signs 02/27/25 08:54 Height 5 ft 6 in Weight 155 lb BMI 25.0 BP 98/62 Blood Pressure Location Rt brachial Position Sitting Pulse 96 Pulse Source Pulse Oximeter Pulse Oximetry (%) 97 Oxygen Delivery Method Room Air Intake Visit Reasons: PE Intake Note: pt is here for PE, and pt has had a GISELL at [facility] in the past no pap needed Allergies bee pollen (BEE STINGS) Allergy (Unknown, Verified 02/27/25 12:36) SWELLING THROAT blueberry (Blueberry) Allergy (Unknown, Verified 02/27/25 12:36) HIVES turkey Allergy (Unknown, Verified 02/27/25 12:36) HIVES Medication List - Last Reconciled 02/27/25 by Gisselle Chapman MD fexofenadine-pseudoephedrine 60-120 mg ER 1 tab PO QAM PRN fluticasone propionate 50 mcg/actuation 1 spray intranasal DAILY PRN multivitamin 1 tab PO DAILY Tobacco use date assessed: 02/27/25 Dental Screening Dental Screen Date: 08/28/24 HPI PE HPI Details - The patient is a 39-year-old female pr esenting for her physical exam . -history of Gallstones s/p lap cholecy stectomy performed in 2022. - The patient underwent a hysterectomy i n 2023 due to abnormal uterine bleeding and abnormal cells in uterine lining . States that she will contact her diamond sizer at [facility] for a pelvic exam and follow-up- The patient reports an enlarged thyroid discovered via ultrasound before the pandemic, with no current follow-up care. no diagnosis of any thyroid disorder in the past - Constipation is a chronic issue, with the patient experiencing infrequent bowel movements and requiring laxatives for relief. - The patient has a history of hyperchol esterolemia and vitamin D deficiency, with previous blood work indicating elevated cholesterol levels and low vitamin D. - Vaccinations up to date, including COV ID-19 boosters and tetanus. [facility] Medical History Constipation Fatigue History of COVID-19 Dyslipidemia History of being obese Surgical History History of appendectomy History of cholecystectomy S/P hysterectomy History of hernia repair Family History Father HTN (hypertension) Mother HTN (hypertension) Diabetes mellitus Maternal Grandmother Heart problem Lung cancer Stroke History of heart attack Maternal Grandfather Stroke Heart problem Paternal Grandmother Diabetes mellitus HTN (hypertension) Stroke History of heart attack Asthma Maternal Aunt Diabetes mellitus Maternal Uncle Stroke Brother No problems noted. Sister No problems noted. Son No problems noted. Son No problems noted. Daughter No problems noted. Daughter No problems noted. Other Mental health disorder Substance use disorder Social History Housing: Apartment Patient Tobacco Use Status: Never used Tobacco e-Cigarette/Vaping Use: Never Used service: No Current occupational status: unemployed Current occupational exposures/hazards: No Cognitive needs: No Hearing needs: No Vision needs: Yes Female Reproductive History Menstrual Age of Menarche: 17 Other: sees [facility] women's health Questionnaire PHQ-9 Over the last 2 weeks, how often have you been bothered by any of the following problems? 1. Little interest or pleasure in doing things: not at all 2. Feeling down, depressed, or hopeless: not at all 3. Trouble falling or staying asleep, or sleeping too much: several days 4. Feeling tired or having little energy: several days 5. Poor appetite or overeating: not at all 6. Feeling bad about yourself - or that you are a failure or have let yourself or your family down: not at all 7. Trouble concentrating on things, such as reading the newspaper or watching television: not at all 8. Moving or speaking so slowly that other people could have noticed. Or the opposite - being so fidgety or restless that you have been moving around a lot more than usual: not at all 9. Thoughts that you would be better off or of hurting yourself in some way: not at all Total score: 2 Depression Screening Interpretation: Negative Depression Screening Done: Yes 83473 - PHQ-9 Billing: Yes Source: Developed by Drs. Isac Marx, Rizwana Schulte, Jony Paul and colleagues, with an educational yves from [employer]. Thrive Questionnaire Date Thrive assessed: 02/27/25 I am a: Patient What is your living situation today?: I have a steady place to live Within the past 12 months, did the food you bought not last and you didn't have the money to get more?: Never true Within the past 12 months, did you worry whether your food would run out before you got money to buy more?: Never true Do you have trouble paying for medicines?: No Do you have trouble getting transportation to medical appointments?: No Do you have trouble paying your heating and electricity bill?: No Do you have trouble taking care of your child, family member or friend?: No Do you have trouble with day-to-day activities such as bathing, preparing meals, shopping, managing finances, etc.?: I choose not to answer this question Are you currently unemployed and looking for a job?: No Are you interested in more education?: No Please select the resources that you would like help with: None Currently or been in a relationship where the following occur: No concerns reported THRIVE Score: 0 AUDIT C Alcohol Use Questionnaire (AUDIT-C) 1. How often do you have a drink containing alcohol?: Never 3. How often do you have six or more drinks on one occasion?: Never Total Score: 0 Score Reviewed/Action Taken: Yes MAURO-7 AMB Questionnaire MAURO-7 Date MAURO - 7 assessed: 02/27/25 Feeling nervous, anxious, or on edge: 0 = Not at all Not being able to stop or control worryin = Not at all Worrying too much about different things: 0 = Not at all Trouble relaxin = Not at all Being so restless that it is hard to sit still: 0 = Not at all Becoming easily annoyed or irritable: 1 = Several days Feeling afraid as if something awful might happen: 0 = Not at all Total MAURO-7 score (0-4 normal; 5-9 mild; 10-14 moderate; 15-21 severe): 1 Source: Developed by Drs. Isac Marx, Rizwana Schulte, Jony Paul and colleagues, with an educational yves from [employer]. MAURO-7 Assessment Billing MAURO-7 Assessment Tool: MAURO-7 Assessment 52435 Review of Systems Const Denies body aches, Denies headache(s) and Denies weakness Eyes Details: Goes to [facility] for her routine eye exam Reports blurry vision ENT Details: Dental cleaning every six-months Denies dizziness and Denies headache(s) Card Denies chest pain, Denies lightheadedness, Denies palpitations and Denies dyspnea Resp Denies chest congestion, Denies cough and Denies dyspnea GI Reports as per HPI, Denies abdominal pain and Denies heartburn Details: Goes to [facility] O[facility]YN for routine Pap and pelvic exam, had hysterectomy done due to abnormal uterine bleeding and abnormal cells in uterine lining per patient Denies hematuria, Denies urinary frequency, Denies dysuria and Denies urinary urgency Musc Reports no additional complaints Skin/Breast Denies breast pain, Denies breast mass, Denies lesions and Denies rash Neuro Denies dizziness, Denies headache(s) and Denies weakness Psych Reports no additional complaints Endo Denies polydipsia, Denies polyuria and Denies palpitations Chadd/Lymph Denies easy bruising Aller/Immun Denies seasonal rhinorrhea Physical exam (Primary Care) Vital Signs: Last Vital Signs Pulse 96 02/27/25 08:54 BP 98/62 02/27/25 08:54 Pulse Ox 97 02/27/25 08:54 Oxygen Delivery Method Room Air 02/27/25 08:54 BMI result Body Mass Index 25.0 Tobacco/Smoking Status: Tobacco use Status Tobacco use date assessed 02/27/25 02/27/25 08:55 Patient Tobacco Use Status Never used Tobacco 02/27/25 08:55 e-Cigarette/Vaping Use Never Used 02/27/25 08:55 Depression Screening Interpretation: Negative Thrive Assessment: Date of Thrive Assessment Date Thrive assessed 02/27/25 02/27/25 08:55 Currently or been in a relationship where the following occur: No concerns reported Const Other: Alert oriented x3 , no acute distress noted HENNH Ears: external ears normal, TM's normal bilaterally and EAC's normal Eyes General: appearance normal, both eyes and all related structures Neck Neck: Yes full ROM, Yes no lymphadenopathy and Yes supple Chest Chest palpation & inspection: normal inspection of the chest Breast/axilla inspection: normal inspection of the breasts Breast/axilla palpation: normal palpation of the breasts Resp Auscultation: clear to auscultation bilaterally Cardio Other: S1-S2 present regular rate and rhythm GI Inspection: Yes scar (Healed laparoscopic scars) Palpation (GI): Soft to palpation, nontender and no guarding Auscultation: normal bowel sounds Other: Goes to [facility] OBG[facility] General: Yes no CVA tenderness Back/Spine/Pelvis Back: no CVA tenderness and No back tenderness Skin General skin exam: no rashes or lesions noted Neuro General: gait normal, moves all extremities and no focal motor deficits Extrem General: Yes normal to inspection, Yes full ROM, Yes no joint enlargement, Yes no clubbing, cyanosis or edema, Yes no calf tenderness and Yes normal gait Psych Appearance: grossly normal and well kempt Mental Status: mental status grossly normal Speech and movement: Normal speech and movement present Affect: normal affect Coding Level of Care Code Est Pt Prev Care 18-39y(32743) Diagnoses Annual visit for general adult medical examination with abnormal findings Z. Dyslipidemia E78.5 Fatigue, unspecified type R53.83 Fatigue type: unspecified Additional Codes MAURO-7 Assessment Billing - MAURO-7 Assessment Tool: MAURO-7 Assessment 33112 ([id number]) PHQ-9 - 57724 - PHQ-9 Billing: Yes ([id number]) Assessment & Plan Assessment & Plan (1) Annual visit for general adult medical examination with abnormal findings: Code(s): Z00. - Encounter for general adult medical examination with abnormal findings (2) Dyslipidemia: Code(s): E78.5 - Hyperlipidemia, unspecified Category: Medical (3) Fatigue: Code(s): R53.83 - Other fatigue Category: Medical Qualifiers: Fatigue type: unspecified Qualified Code(s): R53.83 - Other fatigue Plan The patient will undergo routine blood work to monitor cholesterol and vitamin D levels, given the history of hypercholesterolemia and vitamin D deficiency. Thyroid function tests are recommended due to the history of an enlarged thyroid, with a follow-up ultrasound if abnormalities are detected. A routine Pap smear and pelvic exam are advised due to the history of abnormal cervical cells, despite the hysterectomy. The patient is encouraged to maintain regular dental and eye care appointments and to stay updated on vaccinations, including flu shots and COVID-19 boosters. Patient was informed and verbally consented to the use of an ambient scribe for clinic note documentation during this visit. Orders: Orders TSH reflex Free T4 Today E78.5 - Hyperlipidemia, unspecified, K59.00 - Constipation, unspecified, R53.83 - Other fatigue, Z00.01 - Encounter for general adult medical examination with abnormal findings, Z13.1 - Encounter for screening for diabetes mellitus Liver Panel Today E78.5 - Hyperlipidemia, unspecified, K59.00 - Constipation, unspecified, R53.83 - Other fatigue, Z00.01 - Encounter for general adult medical examination with abnormal findings, Z13.1 - Encounter for screening for diabetes mellitus Hemoglobin A1c Today E78.5 - Hyperlipidemia, unspecified, K59.00 - Constipation, unspecified, R53.83 - Other fatigue, Z00.01 - Encounter for general adult medical examination with abnormal findings, Z13.1 - Encounter for screening for diabetes mellitus Lipid Panel Today E78.5 - Hyperlipidemia, unspecified, K59.00 - Constipation, unspecified, R53.83 - Other fatigue, Z00.01 - Encounter for general adult medical examination with abnormal findings, Z13.1 - Encounter for screening for diabetes mellitus Complete Blood Count Auto Diff Today E78.5 - Hyperlipidemia, unspecified, K59.00 - Constipation, unspecified, R53.83 - Other fatigue, Z00.01 - Encounter for general adult medical examination with abnormal findings, Z13.1 - Encounter for screening for diabetes mellitus Vitamin D 25-OH Total Today E78.5 - Hyperlipidemia, unspecified, K59.00 - Constipation, unspecified, R53.83 - Other fatigue, Z00.01 - Encounter for general adult medical examination with abnormal findings, Z13.1 - Encounter for screening for diabetes mellitus
[2025-02-27 08:54] VITALS: BP 98/62; PULSE 96; O2SAT 97; BMI 25.0
--- OUTSIDE RECORDS SUMMARY | 2025-02-27 09:06 | XMS_ITS | Clinical Summary ---
Author Organization [address] [facility] Address [address] [place] [address] Phone Care Team Providers Care Disaster Response Director Name Role Phone Christopher Sanchez MD Primary Care Provider [phone] Allergies Active Allergy Reactions Criticality Noted Date Comments Blueberry Flavor Medium 05/29/2007 Other Reaction(s): Hives/Urticaria Medications cyanocobalamin, vitamin B-12, 1,000 mcg tablet, sublingual Place 1 Tablet under the tongue daily. 4 Active zinc glycinate 30 mg capsule Take 1 Capsule by mouth daily. 4 Active nystatin (MYCOSTATIN) ointment Apply topically 2 (two) times a day. 30 g 2 5 026 Active tirzepatide, weight loss, (Zepbound) 10 mg/0.5 mL injection Inject 0.5 mL (10 mg total) under the skin every 7 (seven) days. 2 mL 5 Active albuterol HFA (PROAIR HFA ; PROVENTIL HFA ; VENTOLIN HFA) 90 mcg/actuation inhaler INHALE 1 PUFF 3 TIMES A DAY NEEDED FOR WHEEZING FOR 10 DAYS 4 Active amoxicillin-clav ulanate (AUGMENTIN) 875-125 mg per tablet TAKE 1 TABLET BY MOUTH EVERY 12 HOURS TAKE IT WITH MEALS 5 Active azithromycin (ZITHROMAX) 500 mg tablet Take 1 tablet (500 mg total) by mouth 1 (one) time each day. for 5 days 4 Active cephalexin (KEFLEX) 500 mg capsule Take 1 capsule (500 mg total) by mouth 2 (two) times a day. 7 days 5 Active cyclobenzaprine (FLEXERIL) 10 mg tablet PLEASE SEE ATTACHED FOR DETAILED DIRECTIONS 5 Active docusate sodium (Colace) 100 mg capsule Take 1 capsule (100 mg total) by mouth. 3 Active Kandice-D 24 Hour 180-240 mg per 24 hr tablet TAKE 1 TABLET BY MOUTH EVERY MORNING NEEDED FOR ALLERGY SYMPTOMS, NASAL CONGESTION 5 Active fluticasone propionate (FLONASE) 50 mcg/actuation nasal spray SPRAY 1 SPRAY INTRANASALLY DAILY ADMINISTER INTO EACH NOSTRIL 5 Active acetic acid-hydrocortis one (VOSOL-HC) otic solution INSTILL 3 DROPS IN LEFT EAR 3 TIMES A DAY FOR 7 DAYS 4 Active ibuprofen (ADVIL,MOTRIN) 800 mg tablet TAKE 1 TABLET BY MOUTH EVERY 6 HOURS FOR PAIN FOR 7 DAYS 5 Active levonorgestreL (Liletta) 20.4 mcg/24 hr (8 yrs) 52 mg intrauterine device IUD 1 each (52 mg total). 3 Active medroxyPROGESTER one (Provera) 5 mg tablet Take 1 tablet (5 mg total) by mouth. 3 Active meloxicam (MOBIC) 15 mg tablet TAKE 1 TABLET EVERY DAY BY MOUTH AFTER MEAL(S). 4 Active nitrofurantoin, macrocrystal-mon ohydrate, (MACROBID) 100 mg capsule TAKE 1 CAPSULE (ORAL) 2 TIMES PER DAY FOR 5 DAYS MUST ADMINISTER WITH A MEAL/FOOD 5 Active predniSONE (DELTASONE) 10 mg tablet PLEASE SEE ATTACHED FOR DETAILED DIRECTIONS 5 Active sertraline (ZOLOFT) 25 mg tablet 5 Active traZODone (DESYREL) 50 mg tablet 5 Active Active Problems Problem Noted Date Diagnosed Date Class 1 obesity 12/26/2024 Depression 12/26/2024 Fibromyalgia 12/26/2024 Fragile X syndrome in male 12/26/2024 Hx of obesity 10/21/2024 Symptomatic abdominal panniculus 10/21/2024 Intertrigo 10/21/2024 Rectal bleeding 08/27/2010 Anemia 03/11/2008 Joint pain 03/11/2008 Overview (05/08/2024): Wrist pain and knee pain and ankle pain Vertigo 03/11/2008 Encounters Date Type Department Care Team Description 01/10/2025 Telephone General Surgery [facility] [address] [facility] [address] [place] [phone] Grabiel Staley DO Auth (01/10/2025 [facility] Auth) 12/26/2024 2:00 PM EDT Office Visit Plastic & Reconstructive Surgery [facility] [address] [facility] [address] [place] [phone] Grabiel Staley DO Symptomatic abdominal panniculus (Primary Dx); Intertrigo 12/24/2024 10:15 AM EDT Office Visit Bariatric Surgery [facility] [address] [facility] [address] [place] [address] Anais Gaviria PA Hx of obesity (Primary Dx) 12/09/2024 1:30 PM EDT Office Visit Plastic & Reconstructive Surgery [facility] [address] [place] [phone] Nehemias Diaz PA Symptomatic abdominal panniculus (Primary Dx); Intertrigo from Last 3 Months Immunizations Name Administration Dates Next Due DTP 04/22/1993, 0,10/06/1988,1987,1987 [id number] (Pentacel) 2mo to less than 5yo 01/12/1989 Hepatitis B Pediatric (Enger ix B; Recombivax HB) to less than 20 yo 07/26/1996,03/13/1996,12/29/1995 Hib (HbOC) 01/12/1989 Influenza Quadravalent, MDCK , 0.5ml, preservative free (Flucelvax) 6mo and older 07/27/2022 Influenza trivalent, with preservative (Fluzone; Afluria) 6mo and older 05/31/2021,04/26/2018,06/29/2017,2014,07/27/2007 MMR, measles mumps and rubel la Live (Priorix; M-M-R II) 12mo and older 06/28/1995,09/15/1988 OPV 04/22/1993, 9,06/28/1988,1987 PPD Test 07/25/2008 Td Tetanus diptheria (Tdvax) 7yo and older 09/13/2000 Td, Unspecified 09/13/2000 Tdap Tetanus diptheria acell ular pertussis (Boostrix; Adacel) 7yo and older 04/02/2021,02/04/2015,07/31/2013 Family History Medical History Relation Name Comments Diabetes Aunt 1 Hypertension Aunt 2 Lung cancer Maternal Grandmother Diabetes Paternal Grandmother Relation Name Status Comments Aunt 1 Aunt 2 Aunt 3 Maternal Grandmother Paternal Grandmother Social History Tobacco Use Types Packs/Day Years Used Date Smoking Tobacco: Never Alcohol Use Standard Drinks/Week Comments No 0 (1 standard drink = 0.6 oz pur e alcohol) Comments Unknown Sex and Gender Information Value Date Recorded Sex Assigned at Not on file Legal Sex Female 10:46 PM EST Gender Identity Not on file Sexual Orientation Not on file Obstetrics History Last Filed Vital Signs Vital Sign Reading Time Taken Comments Blood Pressure 102/59 12/26/2024 1:31 PM EDT Pulse 66 12/26/2024 1:31 PM EDT Temperature 36.3 C (97.4 F) 2024 10:19 AM EST Respiratory Rate - - Oxygen Saturation - - Inhaled Oxygen Concentration - - Weight 71.3 kg (157 lb 3.2 oz) 12/26/2024 1:31 P M EDT Height 166.4 cm (5' 5.5 ) 12/26/2024 1:31 PM EDT Body Mass Index 25.76 12/26/2024 1:31 PM EDT Plan of Treatment Upcoming Encounters Date Type Department Care Team (Late st Contact Info) Description 03/03/2025 8:30 AM EDT Nutrition Bariatric Surgery - [address] [phone] Theodora Martin, RD [address] [facility] [address] [place] [address] 03/20/2025 11:15 AM EDT Office Visit Bariatric Surgery - [place] [address] [facility] [address] [place] [address] Anais Gaviria PA [address] [facility] [address] [place] [address] Scheduled Procedures Name Priority Associated Diagnoses Date/Ti me PANNICULECTOMY Symptomatic abdominal panniculus Health Maintenance Due Date Last Done Comments Cervical Cancer Screening: Pap Smear 08/27/2013 08/27/2010 Cholesterol Screening (Lipid Panel) 07/03/2022 09/08/2008 Hepatitis C Screening 07/03/2022 Medicare Annual Wellness Visit 07/03/2022 Social Influencers of Health Screening 07/03/2022 COVID-19 Vaccine ( season) 2024 07/27/2022, 02/22/2022, 12/31/2020, Additional history exists Depression Screening 07/31/2024 Influenza Vaccine (#1) 2025 , 05/31/2021, 04/26/2018, Additional history exists DTaP,Tdap,and Td Vaccines (11 - Td or Tdap) 04/02/2031 04/02/2021, 02/04/2015, [...] patient's age to complete this topic Meningococcal B Vaccine Aged Out No l onger eligible based on patient's age to complete this topic Pneumococcal Vaccine: Pediatrics (0 to 5 Years) and At-Risk Patients (6 to 49 Years) Aged Out No longer eligible based [...] Pap Smear (08/27/2010) Pap smear Negative, Abstracted [facility] Provider HEALTH MAINTENANCE Final Result * HIV Screening (03/10/2009) HIV Screening Abstracted [facility] Provider HEALTH MAINTENANCE Final Result * (ABNORMAL) Lipid panel (09/08/2008) LDL/HDL Ratio 5(A) 0 - 4 Triglycerides 222(A) 0 - 150 mg/dL Cholesterol 159 0 - 200 mg/dL HDL 29(A) >=40 mg/dL LDL Cholesterol 86 0 - 100 mg/dL Blood Venous blood specimen / Unknown [facility] Provider LAB BLOOD ORDERABLES Chela l Result from Last 3 Months or Most Recently Relevant to Health Maintenance [place] [address] [facility] [employer] MEDICARE Member Subscriber Plan / Payer (Ef fective 2020-Present) Name:ALAINA GUARDADO Relation to Subscriber:Self Name:Alaina Palomino Payer ID:[id number] Group ID:[id number] Type:Not on file Address: [facility] [address] [id number] Care Teams Disaster Response Director Relationship Specialty Start Date End Date Christopher Sanchez MD [address] [place] [address] Dr [address] JAKI Pitt PCP - General Internal Medicine 05/08/24
== END 2025-02-27 09:48 | disposition home or self-care (01) ==
LOC: HO.HMCC 08:50
PROVIDERS: PCP Hospitalist; Visit Provider Internal Medicine
DX: Z00.01 Encounter for general adult medical examination with abnormal findings (principal); E78.5 Hyperlipidemia, unspecified; R53.83 Other fatigue

== ENCOUNTER 2025-02-27 08:49 | Outpatient (REF) | payer OTHER, SELFPAY ==
[2025-02-27 13:12] LABS: MANUAL DIFF FLAG NO
[2025-02-27 13:22] LABS: Hematocrit 36.7 % (37.0-47.0); Hemoglobin 12.4 g/dl (12.0-16.0); Imm Gran Abs Auto 0.03 X10*3/uL (0.00-0.03); Imm Gran Pct Auto 0.4 % (0.0-0.4); Lymphocytes Absolute Auto 2.5 X10*3/uL (1.2-4.9); Mean Corpuscular HGB Conc 33.8 g/dl (31.0-35.0); Mean Corpuscular Hemoglobin 30.2 pg (27.0-33.0); Mean Corpuscular Volume 89.5 fL (80.0-98.0); NRBC Abs Auto 0.000 X10*3/uL (0.0-0.012); NRBC Pct Auto 0.0 /100WBC (0.0-0.2); Platelet Count 250 X10*3/uL (160-400); Red Blood Count 4.10 X10*6/uL (4.20-5.50); White Blood Count 7.2 X10*3/uL (4.8-10.8)
[2025-02-27 13:48] LABS: Hemoglobin A1C 111.1536 umol/L; Total Hemoglobin (HGBA1C) 3323.8562 umol/L
[2025-02-27 13:54] LABS: Alanine Aminotransferase 26 U/L (0-31); Albumin Level 4.3 g/dL (3.5-5.0); Alkaline Phosphatase 38 U/L (39-117); Aspartate Amino Transferase 25 U/L (5-31); Cholesterol 166 mg/dL (<200); HDL Cholesterol 40 mg/dL (>40); Total Protein 7.0 g/dL (6.5-8.0); Triglycerides 89 mg/dL (<150)
== END 2025-02-27 08:50 | disposition home or self-care (01) ==
LOC: HO.HMGCLDS 08:49
PROVIDERS: PCP Hospitalist; Visit Provider Internal Medicine
DX: Z00.01 Encounter for general adult medical examination with abnormal findings (principal); E78.5 Hyperlipidemia, unspecified; R53.83 Other fatigue; K59.00 Constipation, unspecified; Z13.31 Encounter for screening for depression; Z13.39 Encounter for screening examination for other mental health and behavioral disorders; Z13.1 Encounter for screening for diabetes mellitus
CPT/HCPCS: 36415; 80061; 80076; 82306; 83036; 84443; 85025; 96127; 99395